=== PATIENT | female | born 1960 | race Caucasian/White ===

== ENCOUNTER 2021-04-27 13:58 | Emergency (ER) | payer OTHER ==
[~2021-04-27] VITALS: Ht 170.2 cm; Wt 80.7 kg
[2021-04-27] MEDS ORDERED: CYCLOBENZAPRINE10 MG PO (14:23)
[2021-04-27] MEDS ORDERED: NAPR500T14 PO (14:24)
[2021-04-27] MEDS ORDERED: NORFLEX100MG PO (15:52)
== END 2021-04-27 16:23 | disposition home or self-care (01) ==
LOC: ER 13:58
DX: M25.561 Pain in right knee (principal); M79.661 Pain in right lower leg